=== PATIENT | male | born 1955 | race Caucasian/White ===

== ENCOUNTER → 2019-01-06 | Outpatient (CLI) | payer BC ==
[~2019-01-06] MED LIST: ADVICOR 500 MG1 EACH PO; AMBEREN; AMLODIPINE-BEN1 EAC3 PO; ASPIRIN EC325 M1 PO; ASPIRIN325; DESYREL50 MG PO; FISH OIL 1,001000 M1 PO; FLUZONE 2045 MCG/011; GLUCOPHAGE XR500 MG PO; GLUCOPHAGE XR750 MG; MULTIVITAMINS PO; NIACIN 500 MG500 M1 PO; PNEUMOVAX25 MCG/0.5; VICODIN ES TAB1 EACH PO; VITAMIN C + RO500 MG; VITAMIN E400 UNIT PO; ZESTRIL; ZOCOR
== END ==
LOC: M.LAB 02:38
PROVIDERS: Anesthesiology
DX: E87.6 Hypokalemia (principal); E11.9 Type 2 diabetes mellitus without complications